=== PATIENT | female | born 1960 | race Caucasian/White ===

== ENCOUNTER 2017-08-05 14:25 | Inpatient (IN) | payer MEDICARE, MEDICAID ==
--- NOTE | 2017-08-05 14:44 | ED Physician Chart ---
ED Chief Complaint/HPI - Patient Information Date Seen:: 08/05/17 Time Seen:: 14:30 Chief Complaint:: Cough History of Present Illness:: onset x 3 days of cough, fever, and congestion; no report of H/As, S/T, neck pain, C/P, SOB, Abd. Pain, A/N/V/D/C, chills, or urinary s/s Allergies:: Allergies Allergy/AdvReac Type Severity Reaction Status Date / Time No Known Allergies Allergy Verified 05/11/17 05:39 Historian:: Patient, EMS Review:: Nurse's Note Reviewed, Old Chart Reviewed, EMS run form Reviewed ED Review of Systems - Review of Systems General/Constitutional: Fever, No chills, No weight loss, Weakness, No diaphoresis, No edema, No loss of appetite Skin: No skin lesions, No rash, No bruising Head: No headache, No light-headedness Eyes: No loss of vision, No pain, No diplopia ENT: No earache, Nasal drainage, No sore throat, No tinnitus Neck: No neck pain, No swelling, No thyromegaly, No stiffness, No mass noted Cardio Vascular: No chest pain, No palpitations, No PND, No orthopnea, No edema Pulmonary: No SOB, Cough, No sputum, No wheezing GI: No nausea, No vomiting, No diarrhea, No pain, No melena, No hematochezia, No constipation, No hematemesis G/U: No dysuria, No frequency, No hematuria Commercial Director: No vaginal discharge, No abnormal vaginal bleed, No contraction Musculoskeletal: No bone or joint pain, No back pain, No muscle pain Endocrine: No polyuria, No polydipsia Psychiatric: Prior psych history, Depression, No anxiety, No suicidal ideation Hematopoietic: No bruising, No lymphadenopathy Allergic/Immuno: No urticaria, No angioedema Neurological: No syncope, No focal symptoms, Weakness, No paresthesia, No headache, Seizure, No dizziness, Confusion, No vertigo ED Past Medical History - Past Medical History Obtainable: Yes Past Medical History: Asthma/COPD, Dyslipidemia, Seizures, Thyroid disorder, Dementia Family History: Diabetes Melitus, HTN Social History: Non Smoker, No Alcohol, No Drug Use, Single, Care Facility Surgical History: None Psychiatricy History: Depression, Dementia Medication: Reviewed Family Medical History - Family Member Mother History Unknown: Yes ED Physical Exam - Physical Examination General/Constitutional: Awake, Well-developed, well-nourished, Alert, No distress, GCS 15, Non-toxic appearing, Ambulatory Head: Atraumatic Eyes: Lids, conjuctiva normal, PERRL, EOMI Skin: Nl inspection, No rash, No skin lesions, No ecchymosis, Well hydrated, No lymphadenopathy ENMT: External ears, nose nl, TM canals nl, Nasal exam nl, Lips, teeth, gums nl , Oropharynx nl, Tonsils nl Neck: Nontender, Full ROM w/o pain, No JVD, No nuchal rigidity, No bruit, No mass, No stridor Respiratory: Nl effort/Exclusion Other Respiratory comments:: Lungs: + Rales and Rhonchi Cardio Vascular: RRR, No murmur, gallop, rubs, NL S1 S2, Carotid/Femoral/Distal pulses equal bilaterally GI: No tenderness/rebounding/guarding, No organomegaly, No hernia, Normal BS's, Nondistended, No mass/bruits, No McBurney tenderness : No CVA tenderness Extremities: No tenderness or effusion, Full ROM, normal strength in all extremities, No edema, Normal digits & nails Neuro/Psych: Alert/oriented, DTR's symmetric, Normal sensory exam, Normal motor strength, Judgement/insight normal, Mood normal, Normal gait, No focal deficits Misc: Normal back, No paraspinal tenderness ED Labs/Radiology/EKG Results - Lab Results Comments:: U/A: + Pyuria - Radiology Results Comments:: CXR: + Bilateral LL Infiltrates - EKG Interpretations EKG Time:: 14:50 Rate & Rhythm: 61; NSR Comments:: non-specific st-t changes ED Septic Shock - . Is Septic Shock (SBP<90, OR Lactate>4 mmol\L) present?: No ED Reassessment (Disposition) - Reassessment Reassessment Condition:: Improved - Diagnosis Diagnosis:: Anemia; UTI; Sepsis - Aftercare/Follow up Instructions Aftercare/Follow-Up Instructions:: Counseled pt regarding lab results/diagnosis & need follow up, Counseled pt & family regarding lab results/diagnosis & need follow up - Patient Disposition Discharge/Transfer:: Acute Care w/in this hosp Accepting Physician:: Dr. De La Cruz Time Called:: 1630 Time Responded:: 16:30 Admitted to:: Med/Surg Spoke to:: Dr. De La Cruz Admitting Medical Physician:: Dr. De La Cruz Condition at Disposition:: Stable, Improved
[2017-08-05 15:53] LABS: % BASOPHILS 0.3 % (0.0-2.0); % EOSINOPHILS 6.9 % (0.0-5.0); % LYMPHOCYTES 19.5 % (20.0-50.0); % NEUTROPHILS 65.3 % (40.0-80.0); EOSINOPHILE ABSOLUTE 0.7 Th/cmm (0.1-0.4); HEMOGLOBIN 11.6 gm/dL (12-16); LYMPHOCYTE ABSOLUTE 2.1 Th/cmm (1.5-3.0); MEAN CELL VOLUME 104.5 fl (81-100); MEAN CORPUSCULAR HEMOGLOBIN 34.3 pg (27.0-31.0); MEAN CORPUSCULAR HGB CONC 32.8 pg (28.0-36.0); MEAN PLATELET VOLUME 9.8 fl; MONOCYTE ABSOLUTE 0.9 Th/cmm (0.3-1.0); RED BLOOD COUNT 3.39 Mil/cmm (3.80-5.10)
[2017-08-05 15:56] LABS: HEMATOCRIT 35.4 % (41.0-60); WHITE BLOOD COUNT 10.7 Th/cmm (4.8-10.8)
[2017-08-05 15:57] LABS: PLATELET COUNT 337 Th/cmm (150-400)
[2017-08-05 16:03] LABS: URINE MICROSCOPIC INDICATED? YES; URINE SOURCE MIDSTREAM
[2017-08-05 16:09] LABS: ALB/GLOB RATIO 1.1 (1.0-1.8); ALBUMIN 3.3 gm/dL (3.7-5.3); ALKALINE PHOSPHATASE 60 U/L (34-104); ANION GAP 13.2 (7.0-16.0); BILIRUBIN,TOTAL 0.3 mg/dL (0.3-1.0); BUN - UREA NITROGEN 19 mg/dL (7-25); CALCIUM SERUM 8.8 mg/dL (8.6-10.3); CARBON DIOXIDE 26.6 mEq/L (21.0-31.0); CHLORIDE 99 mEq/L (98-107); CREATININE - SERUM 0.6 mg/dL (0.6-1.2); CREATININE KINASE 16 U/L (30-223); GFR AFRICAN-AMERICAN > 60.0 ml/min (>90); GFR NON AFRICAN-AMERICAN > 60.0 ml/min; GLUCOSE 80 mg/dL (70-105); POTASSIUM SERUM 4.8 mEq/L (3.5-5.1); SGOT 13 U/L (13-39); SODIUM SERUM 134 mEq/L (136-145); TOTAL PROTEIN,SERUM 6.4 gm/dL (6.0-8.3)
[2017-08-05 16:11] LABS: URINE BILIRUBIN NEGATIVE (NEGATIVE); URINE BLOOD MODERATE (NEGATIVE); URINE GLUCOSE (UA) NEGATIVE (NEGATIVE); URINE KETONE NEGATIVE (NEGATIVE); URINE LEUKOCYTE ESTERASE SMALL (NEGATIVE); URINE NITRATE NEGATIVE (NEGATIVE); URINE PROTEIN NEGATIVE (NEGATIVE); URINE UROBILINOGEN 0.2 E.U./dL (0.2 - 1.0)
[2017-08-05 16:19] LABS: TROP I 0.01 ng/mL (0.01-0.05)
[2017-08-05 16:23] LABS: URINE CLARITY CLOUDY (CLEAR); URINE COLOR YELLOW
[2017-08-05 16:24] LABS: URINE RBC 50-100 /hpf (0-5)
[2017-08-05 16:25] LABS: INR 1.01 (0.5-1.4); PROTHROMBIN TIME (TEST) 10.5 SECONDS (9.5-11.5)
[2017-08-05 16:26] LABS: URINE BACTERIA MODERATE /hpf (NONE SEEN); URINE EPITHELIAL CELLS FEW /lpf (FEW); URINE WBC 25-50 /hpf (0-5)
[2017-08-05 16:31] LABS: SGPT/ALT 7 U/L (7-52)
[2017-08-05] MEDS ORDERED: Magnesium Hydroxide (MOM) 30 mL UDC GT PRN (18:56)
[2017-08-05] MEDS ORDERED: Albuterol/Ipratropium Neb 3 ML AERS HHN PRN (18:56)
[2017-08-05] MEDS ORDERED: Promethazine DM 6.25/15mg-5mL 5 ML SYR GT PRN (18:56)
--- NOTE | 2017-08-05 19:54 | History & Physical ---
ADMIT DATE: 08/05/2017 CHIEF COMPLAINT: Abnormal chest x-ray, congestion. HISTORY OF PRESENT ILLNESS: This is an 56-year-old female with history of mental retardation, cerebral palsy, bedridden, seizure, hypothyroidism, hypercholesterolemia, admitted from a nursing facility secondary to congestion and abnormal chest x-ray, not improved with outpatient therapy. The patient is nonverbal and not interactive. PAST MEDICAL HISTORY: As mentioned in history present illness. PAST SURGICAL HISTORY: Status post G-tube. ALLERGIES: No known drug allergies. MEDICATIONS: The patient is on Tylenol, Depakote, Keppra, alendronate, glycopyrrolate, aspirin, Lipitor, ____, calcium, Colace, Pepcid, Synthroid, and MiraLax. FAMILY HISTORY: Noncontributory. SOCIAL HISTORY: The patient is a [facility] patient requiring 24-hour total care. REVIEW OF SYSTEMS: This is limited secondary to the patient's current mental state. We will try to obtain more detailed review of systems at a later date by talking to family members, sister is Jo-Ann Greenfield at [phone]. I will also try to get information from nursing staff at [facility] at [phone] as well as from Dr. Jensen who normally follows the patient. PHYSICAL EXAMINATION: VITAL SIGNS: Blood pressure 105/73, respirations 18, pulse 96, temperature 98.6. GENERAL: Elderly female, appears chronically ill. NECK: Supple. No mass. LUNGS: Decreased breath sounds, few rhonchi. HEART: Regular rate and rhythm without appreciable murmur. ABDOMEN: Soft and globular. Positive bowel sounds. EXTREMITIES: Positive excoriation, contractures, and atrophy. LABORATORY DATA: WBC 10.7, hemoglobin 11.6, platelets 337. Sodium 134, potassium 4.0, BUN 18, creatinine 0.9, albumin 3.3. UA, 50 WBC, moderate bacteria. ASSESSMENT AND PLAN: Possible pneumonia, urinary tract infection, anemia, mental retardation, cerebral palsy, hyponatremia, moderate protein-calorie malnutrition, seizure, hypothyroidism, hypercholesterolemia, and bedbound. We will continue the patient on oxygen and bronchodilator treatments. Continue IV antibiotic. We will follow the patient's blood culture as well as urine culture. We will provide the patient with bronchodilator treatments, continue with current care with followup consult and recommendations. [facility]# [id number]
[2017-08-05] MEDS ORDERED: POLYETHYLENE GLYCOL 3350 17 GM PACK GT PRN (21:15)
[2017-08-05] MEDS: D5-0.9%NS 1,000 ML IV SCH (22:34)
[2017-08-05] MEDS: Albuterol Nebulizer 2.5mg/3mL HHN SCH (22:41)
[2017-08-05] MEDS: Ipratropium Neb 0.5 mg/2.5 mL UD IH SCH (22:41)
[2017-08-06 00:41] VITALS: BP 109/48
[2017-08-06] MEDS: Levothyroxine 0.125 Mg Tab GT SCH (07:02)
[2017-08-06] MEDS: Docusate Sodium 100 mg/10 mL UD GT SCH ×2 (08:56→16:02)
[2017-08-06] MEDS: Atorvastatin Calcium 10 MG TAB GT SCH (08:56)
[2017-08-06] MEDS: Levetiracetam 500 mg/5mL 5mL UDSyr *for ORAL USE ONLY GT SCH ×2 (08:56→16:02)
[2017-08-06] MEDS: Aspirin 81mg Chewable Tab GT SCH (08:57)
[2017-08-06] MEDS: Ipratropium Neb 0.5 mg/2.5 mL UD IH SCH ×3 (12:05→19:48)
[2017-08-06] MEDS: Albuterol Nebulizer 2.5mg/3mL HHN SCH ×3 (12:05→19:48)
[2017-08-06] MEDS: D5-0.9%NS 1,000 ML IV SCH (12:43)
--- NOTE | 2017-08-06 15:10 | Internal Medicine Prog Note ---
Internal Medicine Subjective - Subjective Service Date: 08/06/17 Patient seen and examined:: with staff Patient is:: awake Per staff patient has:: tolerating meds Internal Medicine Objective - Results Result Diagrams: 08/05/17 15:30 08/05/17 15:30 Recent Labs: Laboratory Last Values WBC 10.7 Th/cmm (4.8-10.8) D 08/05/17 15:30 RBC 3.39 Mil/cmm (3.80-5.10) L 08/05/17 15:30 Hgb 11.6 gm/dL (12-16) L 08/05/17 15:30 Hct 35.4 % (41.0-60) L D 08/05/17 15:30 MCV 104.5 fl (81-100) H 08/05/17 15:30 MCH 34.3 pg (27.0-31.0) H 08/05/17 15:30 MCHC Differential 32.8 pg (28.0-36.0) 08/05/17 15:30 RDW 15.0 % (11.5-20.0) 08/05/17 15:30 Plt Count 337 Th/cmm (150-400) D 08/05/17 15:30 MPV 9.8 fl 08/05/17 15:30 Neutrophils % 65.3 % (40.0-80.0) 08/05/17 15:30 Lymphocytes % 19.5 % (20.0-50.0) L 08/05/17 15:30 Monocytes % 8.0 % (2.0-10.0) 08/05/17 15:30 Eosinophils % 6.9 % (0.0-5.0) H 08/05/17 15:30 Basophils % 0.3 % (0.0-2.0) 08/05/17 15:30 PT 10.5 SECONDS (9.5-11.5) 08/05/17 15:30 INR 1.01 (0.5-1.4) 08/05/17 15:30 PTT (Actin FS) 27.0 SECONDS (26.0-38.0) 08/05/17 15:30 Sodium 134 mEq/L (136-145) L 08/05/17 15:30 Potassium 4.8 mEq/L (3.5-5.1) 08/05/17 15:30 Chloride 99 mEq/L (98-107) 08/05/17 15:30 Carbon Dioxide 26.6 mEq/L (21.0-31.0) 08/05/17 15:30 Anion Gap 13.2 (7.0-16.0) 08/05/17 15:30 BUN 19 mg/dL (7-25) 08/05/17 15:30 Creatinine 0.6 mg/dL (0.6-1.2) 08/05/17 15:30 Est GFR ( Amer) > 60.0 ml/min (>90) 08/05/17 15:30 Est GFR (Non-Af Amer) > 60.0 ml/min 08/05/17 15:30 BUN/Creatinine Ratio 31.7 08/05/17 15:30 Glucose 80 mg/dL (70-105) 08/05/17 15:30 Whole Bld Lactic Acid 1.45 mmol/L (0.60-1.99) 08/05/17 15:30 Calcium 8.8 mg/dL (8.6-10.3) 08/05/17 15:30 Total Bilirubin 0.3 mg/dL (0.3-1.0) 08/05/17 15:30 AST 13 U/L (13-39) 08/05/17 15:30 ALT 7 U/L (7-52) 08/05/17 15:30 Alkaline Phosphatase 60 U/L (34-104) 08/05/17 15:30 Creatine Kinase 16 U/L (30-223) L 08/05/17 15:30 Troponin I 0.01 ng/mL (0.01-0.05) 08/05/17 15:30 Total Protein 6.4 gm/dL (6.0-8.3) 08/05/17 15:30 Albumin 3.3 gm/dL (3.7-5.3) L 08/05/17 15:30 Globulin 3.1 gm/dL 08/05/17 15:30 Albumin/Globulin Ratio 1.1 (1.0-1.8) 08/05/17 15:30 Urine Source MIDSTREAM 08/05/17 15:41 Urine Color YELLOW 08/05/17 15:41 Urine Clarity CLOUDY (CLEAR) H 08/05/17 15:41 Urine pH 8.0 (4.6 - 8.0) 08/05/17 15:41 Ur Specific [place] 1.010 (1.005-1.030) 08/05/17 15:41 Urine Protein NEGATIVE mg/dL (NEGATIVE) 08/05/17 15:41 Urine Glucose (UA) NEGATIVE mg/dL (NEGATIVE) 08/05/17 15:41 Urine Ketones NEGATIVE mg/dL (NEGATIVE) 08/05/17 15:41 Urine Blood MODERATE (NEGATIVE) H 08/05/17 15:41 Urine Nitrate NEGATIVE (NEGATIVE) 08/05/17 15:41 Urine Bilirubin NEGATIVE (NEGATIVE) 08/05/17 15:41 Urine Urobilinogen 0.2 E.U./dL (0.2 - 1.0) 08/05/17 15:41 Ur Leukocyte Esterase SMALL (NEGATIVE) H 08/05/17 15:41 Urine RBC 50-100 /hpf (0-5) H 08/05/17 15:41 Urine WBC 25-50 /hpf (0-5) H 08/05/17 15:41 Ur Epithelial Cells FEW /lpf (FEW) 08/05/17 15:41 Urine Bacteria MODERATE /hpf (NONE SEEN) H 08/05/17 15:41 - Physical Exam Vitals and I&O: Vital Signs Temp 97.8 F 08/06/17 12:00 Pulse 69 08/06/17 12:05 Resp 20 08/06/17 12:05 BP 124/47 08/06/17 12:00 Pulse Ox 98 08/06/17 12:05 Intake & Output 08/05/17 08/06/17 08/06/17 18:59 06:59 18:59 Intake Total 940 360 Balance 940 360 Weight (lbs) 136 lb Intake: Intake, IV Amount 940 360 Cefepime 1 gm In Dextrose 50 5% 50 ml @ 100 mls/hr IV Q12HR [facility] Rx#:[id number] D5-0.9%Ns 1,000 ml @ 80 640 360 mls/hr IV .[id number] [facility] Rx #:[id number] Active Medications: Current Medications Acetaminophen (Tylenol 650mg/20.3ml Suspension) 650 mg GT Q4H PRN PRN Reason: Pain or Fever >101 Stop: 10/04/17 20:55 Albuterol Sulfate (Albuterol 2.5mg/3ml Neb Ud) 2.5 mg HHN QIDRT [facility] Stop: 10/04/17 18:59 Last Admin: 08/06/17 12:05 Dose: 2.5 mg Albuterol/Ipratropium (Duoneb Neb) 3 ml HHN Q6HR PRN PRN Reason: sob Stop: 10/04/17 18:55 Aspirin (Aspirin Chewable) 81 mg GT DAILY [facility] Stop: 10/05/17 08:59 Last Admin: 08/06/17 08:57 Dose: 81 mg Atorvastatin Calcium (Lipitor) 10 mg GT DAILY [facility] PRN Reason: Protocol Stop: 10/05/17 08:59 Last Admin: 08/06/17 08:56 Dose: 10 mg Bisacodyl (Dulcolax 10 Mg Supp) 10 mg RC DAILY PRN PRN Reason: Constipation Stop: 10/04/17 18:55 Budesonide (Pulmicort) 0.5 mg HHN BIDRT [facility] Stop: 10/05/17 06:59 Calcium Carbonate (Tums) 1,250 mg GT BID [facility] Stop: 10/05/17 08:59 Last Admin: 08/06/17 08:56 Dose: 1,250 mg Docusate Sodium (Colace) 100 mg GT BID [facility] Stop: 10/05/17 08:59 Last Admin: 08/06/17 08:56 Dose: 100 mg Famotidine (Pepcid) 20 mg GT DAILY [facility] Stop: 10/05/17 08:59 Last Admin: 08/06/17 08:56 Dose: 20 mg Folic Acid (Folate) 1 mg GT DAILY [facility] Stop: 10/05/17 08:59 Last Admin: 08/06/17 08:57 Dose: 1 mg Cefepime HCl 1 gm/ Dextrose 50 mls @ 100 mls/hr IV Q12HR [facility] Stop: 10/04/17 20:59 Last Admin: 08/06/17 08:37 Dose: 100 mls/hr Dextrose/Sodium Chloride (D5-0.9%Ns) 1,000 mls @ 80 mls/hr IV .[id number] [facility] Stop: 10/04/17 18:59 Last Admin: 08/06/17 12:43 Dose: 80 mls/hr Ipratropium [place] (Atrovent Neb 0.5mg/2.5ml) 0.5 mg IH QIDRT [facility] Stop: 10/04/17 18:59 Last Admin: 08/06/17 12:05 Dose: 0.5 mg Levetiracetam (Keppra) 1,000 mg GT BID [facility] Stop: 10/05/17 08:59 Last Admin: 08/06/17 08:56 Dose: 1,000 mg Levothyroxine Sodium (Synthroid) 0.125 mg GT QDAC [facility] Stop: 10/05/17 07:29 Last Admin: 08/06/17 07:02 Dose: Not Given Lorazepam (Ativan) 1 mg IV Q4H PRN; Protocol PRN Reason: Seizure Stop: 10/04/17 18:57 Magnesium Hydroxide (Milk Of Magnesia) 30 ml GT DAILY PRN PRN Reason: Constipation Stop: 10/04/17 18:55 Ondansetron HCl (Zofran) 4 mg IV Q8H PRN PRN Reason: Nausea / Vomiting Stop: 10/04/17 18:57 Polyethylene Glycol (Miralax) 17 gm GT PRN PRN PRN Reason: Constipation Stop: 10/04/17 21:14 Promethazine HCl/Dextromethorphan (Phenergan Dm 6.25/15mg-5 Ml) 5 ml GT Q4H PRN PRN Reason: Cough Stop: 10/04/17 18:55 Valproate Sodium (Depakene) 500 mg GT BID [facility] PRN Reason: Protocol Stop: 10/05/17 08:59 Last Admin: 08/06/17 08:55 Dose: 500 mg Vitamin D (Vitamin D) 400 iu GT BID [facility] Stop: 10/05/17 08:59 Last Admin: 08/06/17 08:59 Dose: 400 iu General: weak, alert HEENT: NC/AT, PERRLA Neck: Supple Lungs: ronchi Cardiovascular: RRR, Normal S1, Normal S2, without murmur Abdomen: soft, non-tender, non-distended, positive bowel sound Extremities: excoriation Neurological: alert - Procedures Procedures: Procedures Procedure Code Date CHANGE FEEDING DEVICE IN UP INTEST TRACT, SHREDDER OPERATOR APPROACH [id number] 05/11/17 CHANGE GASTROSTOMY TUBE 71305 05/11/17 Internal Medicine Assmt/Plan - Assessment Assessment: possible pna acute uti anemia mr seizure cerebral palsy hyponatremia moderate protein calorie malnutrition hypothyroidism hypercholesteremia - Plan Plan: continue ivabx supplemental oxygen follow up labs in am inhalation treatments seizure precautions continue current plan of care
[2017-08-06] MEDS ORDERED: Probiotic Screen MC PRN (16:30)
[2017-08-06] MEDS: Budesonide 0.5 Mg/2 mL Ud HHN SCH (19:48)
[2017-08-07] MEDS: D5-0.9%NS 1,000 ML IV SCH ×2 (04:12→16:53)
[2017-08-07] MEDS: Levothyroxine 0.125 Mg Tab GT SCH (07:08)
[2017-08-07 07:24] LABS: % BASOPHILS 0.2 % (0.0-2.0); % EOSINOPHILS 6.8 % (0.0-5.0); % LYMPHOCYTES 15.5 % (20.0-50.0); % MONOCYTES 6.6 % (2.0-10.0); % NEUTROPHILS 70.9 % (40.0-80.0); EOSINOPHILE ABSOLUTE 0.6 Th/cmm (0.1-0.4); HEMOGLOBIN 10.1 gm/dL (12-16); LYMPHOCYTE ABSOLUTE 1.5 Th/cmm (1.5-3.0); MEAN CELL VOLUME 104.7 fl (81-100); MEAN CORPUSCULAR HEMOGLOBIN 34.9 pg (27.0-31.0); MEAN CORPUSCULAR HGB CONC 33.3 pg (28.0-36.0); MEAN PLATELET VOLUME 9.7 fl; MONOCYTE ABSOLUTE 0.6 Th/cmm (0.3-1.0); NEUTROPHILE ABSOLUTE 6.7 Th/cmm (1.8-8.0); PLATELET COUNT 337 Th/cmm (150-400); RED CELL DISTRIBUTION WIDTH 15.2 % (11.5-20.0); WHITE BLOOD COUNT 9.4 Th/cmm (4.8-10.8)
[2017-08-07 07:27] LABS: HEMATOCRIT 30.4 % (41.0-60)
[2017-08-07 07:32] LABS: ANION GAP 8.7 (7.0-16.0); BUN - UREA NITROGEN 15 mg/dL (7-25); CALCIUM SERUM 8.4 mg/dL (8.6-10.3); CARBON DIOXIDE 29.8 mEq/L (21.0-31.0); CHLORIDE 102 mEq/L (98-107); CREATININE - SERUM 0.6 mg/dL (0.6-1.2); GFR AFRICAN-AMERICAN > 60.0 ml/min (>90); GFR NON AFRICAN-AMERICAN > 60.0 ml/min; GLUCOSE 111 mg/dL (70-105); MAGNESIUM 1.9 mg/dL (1.9-2.7); POTASSIUM SERUM 4.5 mEq/L (3.5-5.1); SODIUM SERUM 136 mEq/L (136-145)
[2017-08-07] MEDS: Albuterol Nebulizer 2.5mg/3mL HHN SCH ×3 (08:03→19:16)
[2017-08-07] MEDS: Ipratropium Neb 0.5 mg/2.5 mL UD IH SCH ×4 (08:03→19:16)
[2017-08-07] MEDS: Budesonide 0.5 Mg/2 mL Ud HHN SCH ×2 (08:03→19:16)
[2017-08-07] MEDS: Levetiracetam 500 mg/5mL 5mL UDSyr *for ORAL USE ONLY GT SCH ×2 (08:21→16:54)
[2017-08-07] MEDS: Aspirin 81mg Chewable Tab GT SCH (08:22)
[2017-08-07] MEDS: Atorvastatin Calcium 10 MG TAB GT SCH (08:22)
[2017-08-07] MEDS: Docusate Sodium 100 mg/10 mL UD GT SCH ×2 (08:22→16:54)
[2017-08-07] MEDS: Lactobacillus Rhamnosus GG 15 Billion CFU CAP.SPRINK PO SCH (08:22)
--- NOTE | 2017-08-07 08:34 | Diagnostic Imaging Report ---
Portable chest x-ray History: Cough Allowing for portable technique the heart size is normal. No focal pulmonary parenchymal processes. No hilar or mediastinal abnormalities. Impression: No acute abnormalities.
--- NOTE | 2017-08-07 13:03 | Internal Medicine Prog Note ---
Internal Medicine Subjective - Subjective Service Date: 08/07/17 Patient seen and examined:: with staff Patient is:: awake Per staff patient has:: tolerating meds Internal Medicine Objective - Results Result Diagrams: 08/07/17 07:02 08/07/17 07:02 Recent Labs: Laboratory Last Values WBC 9.4 Th/cmm (4.8-10.8) 08/07/17 07:02 RBC 2.90 Mil/cmm (3.80-5.10) L 08/07/17 07:02 Hgb 10.1 gm/dL (12-16) L 08/07/17 07:02 Hct 30.4 % (41.0-60) L D 08/07/17 07:02 MCV 104.7 fl (81-100) H 08/07/17 07:02 MCH 34.9 pg (27.0-31.0) H 08/07/17 07:02 MCHC Differential 33.3 pg (28.0-36.0) 08/07/17 07:02 RDW 15.2 % (11.5-20.0) 08/07/17 07:02 Plt Count 337 Th/cmm (150-400) 08/07/17 07:02 MPV 9.7 fl 08/07/17 07:02 Neutrophils % 70.9 % (40.0-80.0) 08/07/17 07:02 Lymphocytes % 15.5 % (20.0-50.0) L 08/07/17 07:02 Monocytes % 6.6 % (2.0-10.0) 08/07/17 07:02 Eosinophils % 6.8 % (0.0-5.0) H 08/07/17 07:02 Basophils % 0.2 % (0.0-2.0) 08/07/17 07:02 PT 10.5 SECONDS (9.5-11.5) 08/05/17 15:30 INR 1.01 (0.5-1.4) 08/05/17 15:30 PTT (Actin FS) 27.0 SECONDS (26.0-38.0) 08/05/17 15:30 Sodium 136 mEq/L (136-145) 08/07/17 07:02 Potassium 4.5 mEq/L (3.5-5.1) 08/07/17 07:02 Chloride 102 mEq/L (98-107) 08/07/17 07:02 Carbon Dioxide 29.8 mEq/L (21.0-31.0) 08/07/17 07:02 Anion Gap 8.7 (7.0-16.0) 08/07/17 07:02 BUN 15 mg/dL (7-25) 08/07/17 07:02 Creatinine 0.6 mg/dL (0.6-1.2) 08/07/17 07:02 Est GFR ( Amer) > 60.0 ml/min (>90) 08/07/17 07:02 Est GFR (Non-Af Amer) > 60.0 ml/min 08/07/17 07:02 BUN/Creatinine Ratio 25.0 08/07/17 07:02 Glucose 111 mg/dL (70-105) H 08/07/17 07:02 Whole Bld Lactic Acid 1.45 mmol/L (0.60-1.99) 08/05/17 15:30 Calcium 8.4 mg/dL (8.6-10.3) L 08/07/17 07:02 Magnesium 1.9 mg/dL (1.9-2.7) 08/07/17 07:02 Total Bilirubin 0.3 mg/dL (0.3-1.0) 08/05/17 15:30 AST 13 U/L (13-39) 08/05/17 15:30 ALT 7 U/L (7-52) 08/05/17 15:30 Alkaline Phosphatase 60 U/L (34-104) 08/05/17 15:30 Ammonia 44 umol/L (16-53) 08/07/17 07:02 Creatine Kinase 16 U/L (30-223) L 08/05/17 15:30 Troponin I 0.01 ng/mL (0.01-0.05) 08/05/17 15:30 B-Natriuretic Peptide 63.7 pg/mL (5.0-100.0) 08/07/17 07:02 Total Protein 6.4 gm/dL (6.0-8.3) 08/05/17 15:30 Albumin 3.3 gm/dL (3.7-5.3) L 08/05/17 15:30 Globulin 3.1 gm/dL 08/05/17 15:30 Albumin/Globulin Ratio 1.1 (1.0-1.8) 08/05/17 15:30 Urine Source MIDSTREAM 08/05/17 15:41 Urine Color YELLOW 08/05/17 15:41 Urine Clarity CLOUDY (CLEAR) H 08/05/17 15:41 Urine pH 8.0 (4.6 - 8.0) 08/05/17 15:41 Ur Specific [place] 1.010 (1.005-1.030) 08/05/17 15:41 Urine Protein NEGATIVE mg/dL (NEGATIVE) 08/05/17 15:41 Urine Glucose (UA) NEGATIVE mg/dL (NEGATIVE) 08/05/17 15:41 Urine Ketones NEGATIVE mg/dL (NEGATIVE) 08/05/17 15:41 Urine Blood MODERATE (NEGATIVE) H 08/05/17 15:41 Urine Nitrate NEGATIVE (NEGATIVE) 08/05/17 15:41 Urine Bilirubin NEGATIVE (NEGATIVE) 08/05/17 15:41 Urine Urobilinogen 0.2 E.U./dL (0.2 - 1.0) 08/05/17 15:41 Ur Leukocyte Esterase SMALL (NEGATIVE) H 08/05/17 15:41 Urine RBC 50-100 /hpf (0-5) H 08/05/17 15:41 Urine WBC 25-50 /hpf (0-5) H 08/05/17 15:41 Ur Epithelial Cells FEW /lpf (FEW) 08/05/17 15:41 Urine Bacteria MODERATE /hpf (NONE SEEN) H 08/05/17 15:41 - Physical Exam Vitals and I&O: Vital Signs Temp 97.1 F 08/07/17 08:00 Pulse 83 08/07/17 11:41 Resp 20 08/07/17 11:41 BP 107/66 08/07/17 08:00 Pulse Ox 98 08/07/17 11:41 Intake & Output 08/06/17 08/07/17 08/07/17 18:59 06:59 18:59 Intake Total 410 1050 Balance 410 1050 Intake: Intake, IV Amount 410 1050 Cefepime 1 gm In Dextrose 50 50 5% 50 ml @ 100 mls/hr IV Q12HR [facility] Rx#:[id number] D5-0.9%Ns 1,000 ml @ 80 360 1000 mls/hr IV .[id number] [facility] Rx #:[id number] Active Medications: Current Medications Acetaminophen (Tylenol 650mg/20.3ml Suspension) 650 mg GT Q4H PRN PRN Reason: Pain or Fever >101 Stop: 10/04/17 20:55 Albuterol Sulfate (Albuterol 2.5mg/3ml Neb Ud) 2.5 mg HHN QIDRT [facility] Stop: 10/04/17 18:59 Last Admin: 08/07/17 11:37 Dose: 2.5 mg Albuterol/Ipratropium (Duoneb Neb) 3 ml HHN Q6HR PRN PRN Reason: sob Stop: 10/04/17 18:55 Aspirin (Aspirin Chewable) 81 mg GT DAILY [facility] Stop: 10/05/17 08:59 Last Admin: 08/07/17 08:22 Dose: 81 mg Atorvastatin Calcium (Lipitor) 10 mg GT DAILY [facility] PRN Reason: Protocol Stop: 10/05/17 08:59 Last Admin: 08/07/17 08:22 Dose: 10 mg Bisacodyl (Dulcolax 10 Mg Supp) 10 mg RC DAILY PRN PRN Reason: Constipation Stop: 10/04/17 18:55 Budesonide (Pulmicort) 0.5 mg HHN BIDRT [facility] Stop: 10/05/17 06:59 Last Admin: 08/07/17 08:03 Dose: 0.5 mg Calcium Carbonate (Tums) 1,250 mg GT BID [facility] Stop: 10/05/17 08:59 Last Admin: 08/07/17 08:22 Dose: 1,250 mg Docusate Sodium (Colace) 100 mg GT BID [facility] Stop: 10/05/17 08:59 Last Admin: 08/07/17 08:22 Dose: 100 mg Famotidine (Pepcid) 20 mg GT DAILY [facility] Stop: 10/05/17 08:59 Last Admin: 08/07/17 08:22 Dose: 20 mg Folic Acid (Folate) 1 mg GT DAILY [facility] Stop: 10/05/17 08:59 Last Admin: 08/07/17 08:22 Dose: 1 mg Cefepime HCl 1 gm/ Dextrose 50 mls @ 100 mls/hr IV Q12HR [facility] Stop: 10/04/17 20:59 Last Admin: 08/07/17 08:21 Dose: 100 mls/hr Dextrose/Sodium Chloride (D5-0.9%Ns) 1,000 mls @ 80 mls/hr IV .[id number] [facility] Stop: 10/04/17 18:59 Last Admin: 08/07/17 04:12 Dose: 80 mls/hr Ipratropium [place] (Atrovent Neb 0.5mg/2.5ml) 0.5 mg IH QIDRT [facility] Stop: 10/04/17 18:59 Last Admin: 08/07/17 11:37 Dose: 0.5 mg Lactobacillus Rhamnosus (Culturelle 15b) 1 each PO DAILY [facility] Stop: 10/06/17 08:59 Last Admin: 08/07/17 08:22 Dose: 1 each Levetiracetam (Keppra) 1,000 mg GT BID [facility] Stop: 10/05/17 08:59 Last Admin: 08/07/17 08:21 Dose: 1,000 mg Levothyroxine Sodium (Synthroid) 0.125 mg GT QDAC [facility] Stop: 10/05/17 07:29 Last Admin: 08/07/17 07:08 Dose: Not Given Lorazepam (Ativan) 1 mg IV Q4H PRN; Protocol PRN Reason: Seizure Stop: 10/04/17 18:57 Magnesium Hydroxide (Milk Of Magnesia) 30 ml GT DAILY PRN PRN Reason: Constipation Stop: 10/04/17 18:55 Miscellaneous (Probiotic Screen) 1 ea MC PRN PRN PRN Reason: PROTOCOL Stop: 10/05/17 16:29 Ondansetron HCl (Zofran) 4 mg IV Q8H PRN PRN Reason: Nausea / Vomiting Stop: 10/04/17 18:57 Polyethylene Glycol (Miralax) 17 gm GT PRN PRN PRN Reason: Constipation Stop: 10/04/17 21:14 Promethazine HCl/Dextromethorphan (Phenergan Dm 6.25/15mg-5 Ml) 5 ml GT Q4H PRN PRN Reason: Cough Stop: 10/04/17 18:55 Valproate Sodium (Depakene) 500 mg GT BID [facility] PRN Reason: Protocol Stop: 10/05/17 08:59 Last Admin: 08/07/17 08:21 Dose: 500 mg Vitamin D (Vitamin D) 400 iu GT BID [facility] Stop: 10/05/17 08:59 Last Admin: 08/07/17 08:22 Dose: 400 iu General: weak, alert HEENT: NC/AT, PERRLA Neck: Supple Lungs: ronchi Cardiovascular: RRR, Normal S1, Normal S2, without murmur Abdomen: soft, non-tender, non-distended, positive bowel sound Extremities: excoriation Neurological: alert - Procedures Procedures: Procedures Procedure Code Date CHANGE FEEDING DEVICE IN UP INTEST TRACT, ECOLOGICAL ECONOMIST APPROACH [id number] 05/11/17 CHANGE GASTROSTOMY TUBE 81678 05/11/17 Internal Medicine Assmt/Plan - Assessment Assessment: possible pna acute uti anemia mr seizure cerebral palsy hyponatremia moderate protein calorie malnutrition hypothyroidism hypercholesteremia - Plan Plan: continue ivabx supplemental oxygen follow up labs in am inhalation treatments seizure precautions continue current plan of care Nutritional Asmnt/Malnutr-PDOC - Dietary Evaluation Malnutrition Findings (Please click <Entered> for more info): Nutritional Asmnt/Malnutrition Start: 08/06/17 15: 32 Text: Status: Complete Freq: Document 08/06/17 15:32 LCHENG (Rec: 08/06/17 15:40 LCHENG [id number]) Nutritional Asmnt/Malnutrition Patient General Information Nutritional Screening High Risk Consult Diagnosis PNA, UTI, Sepsis Pertinent Medical Hx/Surgical Hx Asthma/COPD, dyslipidemia, seizure, thyroid, dementia, depression Subjective Information Consult received for saritha Denis . Pt seen resting in bed at time of visit. Verified TF running at 55ml/hr at time of visit. Spoke with RN, pt was tolerating TF well so far. Current Diet Order/ Nutrition Support Isosource 1.5, 55ml/hr x 24hr, providing 1980kcal and 89g protein Pertinent Medications tums, D5-0.9ns, colace, folate , synthroid, vitamin D Pertinent Labs 08/05 na 134, K 4.8, Cl 99, BUN 19, Cr 0.6, Glucose 80, Ca 8. 8, ALb 3.3 Nutritional Hx/Data Height 5 ft Height (Calculated Centimeters) 152.4 Current Weight (lbs) 136 lb Weight (Calculated Kilograms) 61.7 Weight (Calculated Grams) 14901.6 [place] Body Weight 100 % [place] Body Weight 136 Body Mass Index (BMI) 26.5 Weight Status Overweight GI Symptoms GI Symptoms None Last BM no record Difficult in: None Skin Integrity/Comment: intact Estimated Nutritional Goals BEE in Kcals: Using Current wt Calories/Kcals/Kg 25-30 considering sepsis and bedbound Kcals Calculated 0283-4513 Protein: Using Current wt Protein g/k.1-1.3 Protein Calculated 68-80 Fluid: ml 1550-1860ml (1ml/kcal) Nutritional Problem 1. Problem Problem excessive intake from enertal feeding Etiology current TF regimen providding excessive energy Signs/Symptoms: TF meeting about 106% of higher end of calorie needs and 111% of higher end of protein needs. Malnutrition Alert Protein-Calorie Malnutrition N/A Is there a minimum of two criteria No selected? Query Text:Check all the applicable criteria. A minimum of two criteria are recommended for diagnosis of either severe or non-severe malnutrition. Intervention/Recommendation Comments 1. Recommend Isosource 1.5 55ml/hr x 20hr. This will provide 1650kcal, 74g protein and 886ml free water, meeting 100% of nutritional needs. GENIA tolentino notified. 2. Monitor TF rate, tolerance, wt weekly, skin integrity and labs 3. F/U as moderate risk in 3-5 days, 2/3-2/5 Expected Outcomes/Goals Expected Outcomes/Goals 1. Pt to meet 100% of nutritional needs via nutrition support with tolerance 2. Wt stability, skin to remain intact, labs to approach WNL.
[2017-08-08 06:58] LABS: % BASOPHILS 0.1 % (0.0-2.0); % EOSINOPHILS 7.6 % (0.0-5.0); % LYMPHOCYTES 19.4 % (20.0-50.0); % MONOCYTES 12.5 % (2.0-10.0); % NEUTROPHILS 60.4 % (40.0-80.0); EOSINOPHILE ABSOLUTE 0.4 Th/cmm (0.1-0.4); HEMATOCRIT 31.2 % (41.0-60); HEMOGLOBIN 10.3 gm/dL (12-16); LYMPHOCYTE ABSOLUTE 1.1 Th/cmm (1.5-3.0); MEAN CELL VOLUME 103.6 fl (81-100); MEAN CORPUSCULAR HEMOGLOBIN 34.2 pg (27.0-31.0); MEAN PLATELET VOLUME 9.7 fl; MONOCYTE ABSOLUTE 0.7 Th/cmm (0.3-1.0); NEUTROPHILE ABSOLUTE 3.7 Th/cmm (1.8-8.0); PLATELET COUNT 357 Th/cmm (150-400); RED BLOOD COUNT 3.01 Mil/cmm (3.80-5.10)
[2017-08-08] MEDS: Levothyroxine 0.125 Mg Tab GT SCH (07:02)
[2017-08-08 07:04] LABS: WHITE BLOOD COUNT 5.9 Th/cmm (4.8-10.8)
[2017-08-08 07:26] LABS: ANION GAP 7.9 (7.0-16.0); BUN - UREA NITROGEN 14 mg/dL (7-25); CALCIUM SERUM 8.3 mg/dL (8.6-10.3); CARBON DIOXIDE 32.3 mEq/L (21.0-31.0); CHLORIDE 100 mEq/L (98-107); CREATININE - SERUM 0.9 mg/dL (0.6-1.2); GFR AFRICAN-AMERICAN > 60.0 ml/min (>90); GFR NON AFRICAN-AMERICAN > 60.0 ml/min; GLUCOSE 108 mg/dL (70-105); POTASSIUM SERUM 4.2 mEq/L (3.5-5.1); SODIUM SERUM 136 mEq/L (136-145)
[2017-08-08] MEDS: Ipratropium Neb 0.5 mg/2.5 mL UD IH SCH ×4 (07:29→19:11)
[2017-08-08] MEDS: Budesonide 0.5 Mg/2 mL Ud HHN SCH ×2 (07:29→19:11)
[2017-08-08] MEDS: Albuterol Nebulizer 2.5mg/3mL HHN SCH ×4 (07:29→19:11)
[2017-08-08] MEDS: Atorvastatin Calcium 10 MG TAB GT SCH (08:43)
[2017-08-08] MEDS: Aspirin 81mg Chewable Tab GT SCH (08:43)
[2017-08-08] MEDS: Docusate Sodium 100 mg/10 mL UD GT SCH ×2 (08:44→17:39)
[2017-08-08] MEDS: Lactobacillus Rhamnosus GG 15 Billion CFU CAP.SPRINK PO SCH (08:45)
[2017-08-08] MEDS: Levetiracetam 500 mg/5mL 5mL UDSyr *for ORAL USE ONLY GT SCH ×2 (08:45→17:39)
[2017-08-08] MEDS: D5-0.9%NS 1,000 ML IV SCH (10:01)
--- NOTE | 2017-08-08 14:34 | Internal Medicine Prog Note ---
Internal Medicine Subjective - Subjective Service Date: 08/08/17 Patient seen and examined:: with staff Patient is:: awake Per staff patient has:: tolerating meds Internal Medicine Objective - Results Result Diagrams: 08/08/17 06:22 08/08/17 06:22 Recent Labs: Laboratory Last Values WBC 5.9 Th/cmm (4.8-10.8) D 08/08/17 06:22 RBC 3.01 Mil/cmm (3.80-5.10) L 08/08/17 06:22 Hgb 10.3 gm/dL (12-16) L 08/08/17 06:22 Hct 31.2 % (41.0-60) L 08/08/17 06:22 MCV 103.6 fl (81-100) H 08/08/17 06:22 MCH 34.2 pg (27.0-31.0) H 08/08/17 06:22 MCHC Differential 33.0 pg (28.0-36.0) 08/08/17 06:22 RDW 15.0 % (11.5-20.0) 08/08/17 06:22 Plt Count 357 Th/cmm (150-400) 08/08/17 06:22 MPV 9.7 fl 08/08/17 06:22 Neutrophils % 60.4 % (40.0-80.0) 08/08/17 06:22 Lymphocytes % 19.4 % (20.0-50.0) L 08/08/17 06:22 Monocytes % 12.5 % (2.0-10.0) H 08/08/17 06:22 Eosinophils % 7.6 % (0.0-5.0) H 08/08/17 06:22 Basophils % 0.1 % (0.0-2.0) 08/08/17 06:22 PT 10.5 SECONDS (9.5-11.5) 08/05/17 15:30 INR 1.01 (0.5-1.4) 08/05/17 15:30 PTT (Actin FS) 27.0 SECONDS (26.0-38.0) 08/05/17 15:30 Sodium 136 mEq/L (136-145) 08/08/17 06:22 Potassium 4.2 mEq/L (3.5-5.1) 08/08/17 06:22 Chloride 100 mEq/L (98-107) 08/08/17 06:22 Carbon Dioxide 32.3 mEq/L (21.0-31.0) H 08/08/17 06:22 Anion Gap 7.9 (7.0-16.0) 08/08/17 06:22 BUN 14 mg/dL (7-25) 08/08/17 06:22 Creatinine 0.9 mg/dL (0.6-1.2) 08/08/17 06:22 Est GFR ( Amer) > 60.0 ml/min (>90) 08/08/17 06:22 Est GFR (Non-Af Amer) > 60.0 ml/min 08/08/17 06:22 BUN/Creatinine Ratio 15.6 08/08/17 06:22 Glucose 108 mg/dL (70-105) H 08/08/17 06:22 Whole Bld Lactic Acid 1.45 mmol/L (0.60-1.99) 08/05/17 15:30 Calcium 8.3 mg/dL (8.6-10.3) L 08/08/17 06:22 Magnesium 1.9 mg/dL (1.9-2.7) 08/07/17 07:02 Total Bilirubin 0.3 mg/dL (0.3-1.0) 08/05/17 15:30 AST 13 U/L (13-39) 08/05/17 15:30 ALT 7 U/L (7-52) 08/05/17 15:30 Alkaline Phosphatase 60 U/L (34-104) 08/05/17 15:30 Ammonia 44 umol/L (16-53) 08/07/17 07:02 Creatine Kinase 16 U/L (30-223) L 08/05/17 15:30 Troponin I 0.01 ng/mL (0.01-0.05) 08/05/17 15:30 B-Natriuretic Peptide 63.7 pg/mL (5.0-100.0) 08/07/17 07:02 Total Protein 6.4 gm/dL (6.0-8.3) 08/05/17 15:30 Albumin 3.3 gm/dL (3.7-5.3) L 08/05/17 15:30 Globulin 3.1 gm/dL 08/05/17 15:30 Albumin/Globulin Ratio 1.1 (1.0-1.8) 08/05/17 15:30 Urine Source MIDSTREAM 08/05/17 15:41 Urine Color YELLOW 08/05/17 15:41 Urine Clarity CLOUDY (CLEAR) H 08/05/17 15:41 Urine pH 8.0 (4.6 - 8.0) 08/05/17 15:41 Ur Specific [place] 1.010 (1.005-1.030) 08/05/17 15:41 Urine Protein NEGATIVE mg/dL (NEGATIVE) 08/05/17 15:41 Urine Glucose (UA) NEGATIVE mg/dL (NEGATIVE) 08/05/17 15:41 Urine Ketones NEGATIVE mg/dL (NEGATIVE) 08/05/17 15:41 Urine Blood MODERATE (NEGATIVE) H 08/05/17 15:41 Urine Nitrate NEGATIVE (NEGATIVE) 08/05/17 15:41 Urine Bilirubin NEGATIVE (NEGATIVE) 08/05/17 15:41 Urine Urobilinogen 0.2 E.U./dL (0.2 - 1.0) 08/05/17 15:41 Ur Leukocyte Esterase SMALL (NEGATIVE) H 08/05/17 15:41 Urine RBC 50-100 /hpf (0-5) H 08/05/17 15:41 Urine WBC 25-50 /hpf (0-5) H 08/05/17 15:41 Ur Epithelial Cells FEW /lpf (FEW) 08/05/17 15:41 Urine Bacteria MODERATE /hpf (NONE SEEN) H 08/05/17 15:41 - Physical Exam Vitals and I&O: Vital Signs Temp 98.1 F 08/08/17 04:00 Pulse 77 08/08/17 11:08 Resp 20 08/08/17 11:08 BP 108/55 08/08/17 04:00 Pulse Ox 99 08/08/17 11:08 Intake & Output 08/07/17 08/08/17 08/08/17 18:59 06:59 18:59 Intake Total 935.333 50 Balance 935.333 50 Weight (lbs) 136 lb 140 lb Intake: Intake, IV Amount 1164.667 935.333 50 Cefepime 1 gm In Dextrose 50 50 50 5% 50 ml @ 100 mls/hr IV Q12HR [facility] Rx#:[id number] D5-0.9%Ns 1,000 ml @ 80 1114.667 885.333 mls/hr IV .[id number] [facility] Rx #:[id number] Tube Feeding 840 Other: # Voids 3 3 # Bowel Movements 0 1 Active Medications: Current Medications Acetaminophen (Tylenol 650mg/20.3ml Suspension) 650 mg GT Q4H PRN PRN Reason: Pain or Fever >101 Stop: 10/04/17 20:55 Albuterol Sulfate (Albuterol 2.5mg/3ml Neb Ud) 2.5 mg HHN QIDRT [facility] Stop: 10/04/17 18:59 Last Admin: 08/08/17 11:07 Dose: 2.5 mg Albuterol/Ipratropium (Duoneb Neb) 3 ml HHN Q6HR PRN PRN Reason: sob Stop: 10/04/17 18:55 Aspirin (Aspirin Chewable) 81 mg GT DAILY [facility] Stop: 10/05/17 08:59 Last Admin: 08/08/17 08:43 Dose: 81 mg Atorvastatin Calcium (Lipitor) 10 mg GT DAILY [facility] PRN Reason: Protocol Stop: 10/05/17 08:59 Last Admin: 08/08/17 08:43 Dose: 10 mg Bisacodyl (Dulcolax 10 Mg Supp) 10 mg RC DAILY PRN PRN Reason: Constipation Stop: 10/04/17 18:55 Budesonide (Pulmicort) 0.5 mg HHN BIDRT [facility] Stop: 10/05/17 06:59 Last Admin: 08/08/17 07:29 Dose: 0.5 mg Calcium Carbonate (Tums) 1,250 mg GT BID [facility] Stop: 10/05/17 08:59 Last Admin: 08/08/17 08:43 Dose: 1,250 mg Docusate Sodium (Colace) 100 mg GT BID [facility] Stop: 10/05/17 08:59 Last Admin: 08/08/17 08:44 Dose: 100 mg Famotidine (Pepcid) 20 mg GT DAILY [facility] Stop: 10/05/17 08:59 Last Admin: 08/08/17 08:44 Dose: 20 mg Folic Acid (Folate) 1 mg GT DAILY [facility] Stop: 10/05/17 08:59 Last Admin: 08/08/17 08:44 Dose: 1 mg Cefepime HCl 1 gm/ Dextrose 50 mls @ 100 mls/hr IV Q12HR [facility] Stop: 10/04/17 20:59 Last Infusion: 08/08/17 11:40 Dose: Infused Dextrose/Sodium Chloride (D5-0.9%Ns) 1,000 mls @ 80 mls/hr IV .[id number] [facility] Stop: 10/04/17 18:59 Last Admin: 08/08/17 10:01 Dose: 80 mls/hr Fluconazole (Diflucan) 200 mg in 100 mls @ 100 mls/hr IV Q24HR [facility] Stop: 10/07/17 14:59 Ipratropium [place] (Atrovent Neb 0.5mg/2.5ml) 0.5 mg IH QIDRT [facility] Stop: 10/04/17 18:59 Last Admin: 08/08/17 11:07 Dose: 0.5 mg Lactobacillus Rhamnosus (Culturelle 15b) 1 each PO DAILY [facility] Stop: 10/06/17 08:59 Last Admin: 08/08/17 08:45 Dose: 1 each Levetiracetam (Keppra) 1,000 mg GT BID [facility] Stop: 10/05/17 08:59 Last Admin: 08/08/17 08:45 Dose: 1,000 mg Levothyroxine Sodium 0.1 mg/ (Levothyroxine Sodium 0.025 mg) 0.125 mg GT QDAC [facility] Stop: 10/07/17 10:59 Last Admin: 08/08/17 12:01 Dose: 0.125 mg Lorazepam (Ativan) 1 mg IV Q4H PRN; Protocol PRN Reason: Seizure Stop: 10/04/17 18:57 Magnesium Hydroxide (Milk Of Magnesia) 30 ml GT DAILY PRN PRN Reason: Constipation Stop: 10/04/17 18:55 Miscellaneous (Probiotic Screen) 1 ea MC PRN PRN PRN Reason: PROTOCOL Stop: 10/05/17 16:29 Ondansetron HCl (Zofran) 4 mg IV Q8H PRN PRN Reason: Nausea / Vomiting Stop: 10/04/17 18:57 Polyethylene Glycol (Miralax) 17 gm GT PRN PRN PRN Reason: Constipation Stop: 10/04/17 21:14 Promethazine HCl/Dextromethorphan (Phenergan Dm 6.25/15mg-5 Ml) 5 ml GT Q4H PRN PRN Reason: Cough Stop: 10/04/17 18:55 Valproate Sodium (Depakene) 500 mg GT BID [facility] PRN Reason: Protocol Stop: 10/05/17 08:59 Last Admin: 08/08/17 08:45 Dose: 500 mg Vitamin D (Vitamin D) 400 iu GT BID [facility] Stop: 10/05/17 08:59 Last Admin: 08/08/17 08:45 Dose: 400 iu General: weak, alert HEENT: NC/AT, PERRLA Neck: Supple Lungs: ronchi Cardiovascular: RRR, Normal S1, Normal S2, without murmur Abdomen: soft, non-tender, non-distended, positive bowel sound Extremities: excoriation Neurological: alert - Procedures Procedures: Procedures Procedure Code Date CHANGE FEEDING DEVICE IN UP INTEST TRACT, 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 [id number] 05/11/17 CHANGE GASTROSTOMY TUBE 30713 05/11/17 Internal Medicine Assmt/Plan - Assessment Assessment: possible pna acute uti anemia mr seizure cerebral palsy hyponatremia moderate protein calorie malnutrition hypothyroidism hypercholesteremia - Plan Plan: continue ivabx supplemental oxygen follow up labs in am inhalation treatments seizure precautions continue current plan of care Nutritional Asmnt/Malnutr-PDOC - Dietary Evaluation Malnutrition Findings (Please click <Entered> for more info): Nutritional Asmnt/Malnutrition Start: 08/06/17 15: 32 Text: Status: Complete Freq: Document 08/06/17 15:32 [email or web address] (Rec: 08/06/17 15:40 LCHENG [email or web address]) Nutritional Asmnt/Malnutrition Patient General Information Nutritional Screening High Risk Consult Diagnosis PNA, UTI, Sepsis Pertinent Medical Hx/Surgical Hx Asthma/COPD, dyslipidemia, seizure, thyroid, dementia, depression Subjective Information Consult received for saritha Denis . Pt seen resting in bed at time of visit. Verified TF running at 55ml/hr at time of visit. Spoke with RN, pt was tolerating TF well so far. Current Diet Order/ Nutrition Support Isosource 1.5, 55ml/hr x 24hr, providing 1980kcal and 89g protein Pertinent Medications tums, D5-0.9ns, colace, folate , synthroid, vitamin D Pertinent Labs 08/05 na 134, K 4.8, Cl 99, BUN 19, Cr 0.6, Glucose 80, Ca 8. 8, ALb 3.3 Nutritional Hx/Data Height 5 ft Height (Calculated Centimeters) 152.4 Current Weight (lbs) 136 lb Weight (Calculated Kilograms) 61.7 Weight (Calculated Grams) 72868.6 [place] Body Weight 100 % [place] Body Weight 136 Body Mass Index (BMI) 26.5 Weight Status Overweight GI Symptoms GI Symptoms None Last BM no record Difficult in: None Skin Integrity/Comment: intact Estimated Nutritional Goals BEE in Kcals: Using Current wt Calories/Kcals/Kg 25-30 considering sepsis and bedbound Kcals Calculated 1046-3284 Protein: Using Current wt Protein g/k.1-1.3 Protein Calculated 68-80 Fluid: ml 1550-1860ml (1ml/kcal) Nutritional Problem 1. Problem Problem excessive intake from enertal feeding Etiology current TF regimen providding excessive energy Signs/Symptoms: TF meeting about 106% of higher end of calorie needs and 111% of higher end of protein needs. Malnutrition Alert Protein-Calorie Malnutrition N/A Is there a minimum of two criteria No selected? Query Text:Check all the applicable criteria. A minimum of two criteria are recommended for diagnosis of either severe or non-severe malnutrition. Intervention/Recommendation Comments 1. Recommend Isosource 1.5 55ml/hr x 20hr. This will provide 1650kcal, 74g protein and 886ml free water, meeting 100% of nutritional needs. GENIA tolentino notified. 2. Monitor TF rate, tolerance, wt weekly, skin integrity and labs 3. F/U as moderate risk in 3-5 days, 2/3-2/5 Expected Outcomes/Goals Expected Outcomes/Goals 1. Pt to meet 100% of nutritional needs via nutrition support with tolerance 2. Wt stability, skin to remain intact, labs to approach WNL.
[2017-08-08] MEDS ORDERED: Fluconazole 200mg/100mL 200 MG/100 ML BAG IV SCH (15:00)
[2017-08-09] MEDS: Ipratropium Neb 0.5 mg/2.5 mL UD IH SCH ×4 (07:21→19:06)
[2017-08-09] MEDS: Budesonide 0.5 Mg/2 mL Ud HHN SCH ×2 (07:21→19:06)
[2017-08-09] MEDS: Albuterol Nebulizer 2.5mg/3mL HHN SCH ×4 (07:22→19:06)
[2017-08-09 08:50] LABS: % BASOPHILS 1.3 % (0.0-2.0); % EOSINOPHILS 6.4 % (0.0-5.0); % LYMPHOCYTES 22.9 % (20.0-50.0); % MONOCYTES 14.3 % (2.0-10.0); % NEUTROPHILS 55.1 % (40.0-80.0); BASOPHILE ABSOLUTE 0.1 Th/cumm (0-0.2); EOSINOPHILE ABSOLUTE 0.4 Th/cmm (0.1-0.4); HEMATOCRIT 33.5 % (41.0-60); HEMOGLOBIN 11.1 gm/dL (12-16); LYMPHOCYTE ABSOLUTE 1.5 Th/cmm (1.5-3.0); MEAN CELL VOLUME 104.3 fl (81-100); MEAN CORPUSCULAR HEMOGLOBIN 34.6 pg (27.0-31.0); MEAN CORPUSCULAR HGB CONC 33.2 pg (28.0-36.0); MEAN PLATELET VOLUME 9.5 fl; MONOCYTE ABSOLUTE 0.9 Th/cmm (0.3-1.0); NEUTROPHILE ABSOLUTE 3.6 Th/cmm (1.8-8.0); PLATELET COUNT 350 Th/cmm (150-400); RED BLOOD COUNT 3.22 Mil/cmm (3.80-5.10); RED CELL DISTRIBUTION WIDTH 14.9 % (11.5-20.0); WHITE BLOOD COUNT 6.5 Th/cmm (4.8-10.8)
[2017-08-09 09:05] LABS: ANION GAP 7.7 (7.0-16.0); BUN - UREA NITROGEN 15 mg/dL (7-25); CALCIUM SERUM 8.8 mg/dL (8.6-10.3); CARBON DIOXIDE 33.9 mEq/L (21.0-31.0); CHLORIDE 99 mEq/L (98-107); CREATININE - SERUM 0.6 mg/dL (0.6-1.2); GFR AFRICAN-AMERICAN > 60.0 ml/min (>90); GFR NON AFRICAN-AMERICAN > 60.0 ml/min; GLUCOSE 104 mg/dL (70-105); POTASSIUM SERUM 4.6 mEq/L (3.5-5.1); SODIUM SERUM 136 mEq/L (136-145)
[2017-08-09] MEDS: Aspirin 81mg Chewable Tab GT SCH (09:42)
[2017-08-09] MEDS: Atorvastatin Calcium 10 MG TAB GT SCH (09:42)
[2017-08-09] MEDS: Docusate Sodium 100 mg/10 mL UD GT SCH ×2 (09:44→17:12)
[2017-08-09] MEDS: Levetiracetam 500 mg/5mL 5mL UDSyr *for ORAL USE ONLY GT SCH ×2 (09:47→17:14)
[2017-08-09] MEDS: Lactobacillus Rhamnosus GG 15 Billion CFU CAP.SPRINK PO SCH (09:47)
--- NOTE | 2017-08-09 16:45 | Internal Medicine Prog Note ---
Internal Medicine Subjective - Subjective Service Date: 08/09/17 Patient seen and examined:: with staff Patient is:: awake Per staff patient has:: tolerating meds Internal Medicine Objective - Results Result Diagrams: 08/09/17 08:00 08/09/17 08:00 Recent Labs: Laboratory Last Values WBC 6.5 Th/cmm (4.8-10.8) 08/09/17 08:00 RBC 3.22 Mil/cmm (3.80-5.10) L 08/09/17 08:00 Hgb 11.1 gm/dL (12-16) L 08/09/17 08:00 Hct 33.5 % (41.0-60) L 08/09/17 08:00 MCV 104.3 fl (81-100) H 08/09/17 08:00 MCH 34.6 pg (27.0-31.0) H 08/09/17 08:00 MCHC Differential 33.2 pg (28.0-36.0) 08/09/17 08:00 RDW 14.9 % (11.5-20.0) 08/09/17 08:00 Plt Count 350 Th/cmm (150-400) 08/09/17 08:00 MPV 9.5 fl 08/09/17 08:00 Neutrophils % 55.1 % (40.0-80.0) 08/09/17 08:00 Lymphocytes % 22.9 % (20.0-50.0) 08/09/17 08:00 Monocytes % 14.3 % (2.0-10.0) H 08/09/17 08:00 Eosinophils % 6.4 % (0.0-5.0) H 08/09/17 08:00 Basophils % 1.3 % (0.0-2.0) 08/09/17 08:00 PT 10.5 SECONDS (9.5-11.5) 08/05/17 15:30 INR 1.01 (0.5-1.4) 08/05/17 15:30 PTT (Actin FS) 27.0 SECONDS (26.0-38.0) 08/05/17 15:30 Sodium 136 mEq/L (136-145) 08/09/17 08:00 Potassium 4.6 mEq/L (3.5-5.1) 08/09/17 08:00 Chloride 99 mEq/L (98-107) 08/09/17 08:00 Carbon Dioxide 33.9 mEq/L (21.0-31.0) H 08/09/17 08:00 Anion Gap 7.7 (7.0-16.0) 08/09/17 08:00 BUN 15 mg/dL (7-25) 08/09/17 08:00 Creatinine 0.6 mg/dL (0.6-1.2) 08/09/17 08:00 Est GFR ( Amer) > 60.0 ml/min (>90) 08/09/17 08:00 Est GFR (Non-Af Amer) > 60.0 ml/min 08/09/17 08:00 BUN/Creatinine Ratio 25.0 08/09/17 08:00 Glucose 104 mg/dL (70-105) 08/09/17 08:00 Whole Bld Lactic Acid 1.45 mmol/L (0.60-1.99) 08/05/17 15:30 Calcium 8.8 mg/dL (8.6-10.3) 08/09/17 08:00 Magnesium 1.9 mg/dL (1.9-2.7) 08/07/17 07:02 Total Bilirubin 0.3 mg/dL (0.3-1.0) 08/05/17 15:30 AST 13 U/L (13-39) 08/05/17 15:30 ALT 7 U/L (7-52) 08/05/17 15:30 Alkaline Phosphatase 60 U/L (34-104) 08/05/17 15:30 Ammonia 44 umol/L (16-53) 08/07/17 07:02 Creatine Kinase 16 U/L (30-223) L 08/05/17 15:30 Troponin I 0.01 ng/mL (0.01-0.05) 08/05/17 15:30 B-Natriuretic Peptide 63.7 pg/mL (5.0-100.0) 08/07/17 07:02 Total Protein 6.4 gm/dL (6.0-8.3) 08/05/17 15:30 Albumin 3.3 gm/dL (3.7-5.3) L 08/05/17 15:30 Globulin 3.1 gm/dL 08/05/17 15:30 Albumin/Globulin Ratio 1.1 (1.0-1.8) 08/05/17 15:30 Urine Source MIDSTREAM 08/05/17 15:41 Urine Color YELLOW 08/05/17 15:41 Urine Clarity CLOUDY (CLEAR) H 08/05/17 15:41 Urine pH 8.0 (4.6 - 8.0) 08/05/17 15:41 Ur Specific [place] 1.010 (1.005-1.030) 08/05/17 15:41 Urine Protein NEGATIVE mg/dL (NEGATIVE) 08/05/17 15:41 Urine Glucose (UA) NEGATIVE mg/dL (NEGATIVE) 08/05/17 15:41 Urine Ketones NEGATIVE mg/dL (NEGATIVE) 08/05/17 15:41 Urine Blood MODERATE (NEGATIVE) H 08/05/17 15:41 Urine Nitrate NEGATIVE (NEGATIVE) 08/05/17 15:41 Urine Bilirubin NEGATIVE (NEGATIVE) 08/05/17 15:41 Urine Urobilinogen 0.2 E.U./dL (0.2 - 1.0) 08/05/17 15:41 Ur Leukocyte Esterase SMALL (NEGATIVE) H 08/05/17 15:41 Urine RBC 50-100 /hpf (0-5) H 08/05/17 15:41 Urine WBC 25-50 /hpf (0-5) H 08/05/17 15:41 Ur Epithelial Cells FEW /lpf (FEW) 08/05/17 15:41 Urine Bacteria MODERATE /hpf (NONE SEEN) H 08/05/17 15:41 - Physical Exam Vitals and I&O: Vital Signs Temp 97.4 F 08/09/17 11:45 Pulse 71 08/09/17 14:45 Resp 20 08/09/17 14:45 BP 97/42 08/09/17 11:45 Pulse Ox 96 08/09/17 14:45 Intake & Output 08/08/17 08/09/17 08/09/17 18:59 06:59 18:59 Intake Total 50 900 Balance 50 900 Weight (lbs) 140 lb 7 oz Intake: Intake, IV Amount 50 100 Cefepime 1 gm In Dextrose 50 5% 50 ml @ 100 mls/hr IV Q12HR [facility] Rx#:[id number] Tube Feeding 600 Other 200 Other: # Voids 2 # Bowel Movements 0 Stool Characteristics Soft Soft Brown Brown Active Medications: Current Medications Acetaminophen (Tylenol 650mg/20.3ml Suspension) 650 mg GT Q4H PRN PRN Reason: Pain or Fever >101 Stop: 10/04/17 20:55 Albuterol Sulfate (Albuterol 2.5mg/3ml Neb Ud) 2.5 mg HHN QIDRT [facility] Stop: 10/04/17 18:59 Last Admin: 08/09/17 14:40 Dose: 2.5 mg Albuterol/Ipratropium (Duoneb Neb) 3 ml HHN Q6HR PRN PRN Reason: sob Stop: 10/04/17 18:55 Aspirin (Aspirin Chewable) 81 mg GT DAILY [facility] Stop: 10/05/17 08:59 Last Admin: 08/09/17 09:42 Dose: 81 mg Atorvastatin Calcium (Lipitor) 10 mg GT DAILY [facility] PRN Reason: Protocol Stop: 10/05/17 08:59 Last Admin: 08/09/17 09:42 Dose: 10 mg Bisacodyl (Dulcolax 10 Mg Supp) 10 mg RC DAILY PRN PRN Reason: Constipation Stop: 10/04/17 18:55 Budesonide (Pulmicort) 0.5 mg HHN BIDRT [facility] Stop: 10/05/17 06:59 Last Admin: 08/09/17 07:21 Dose: 0.5 mg Calcium Carbonate (Tums) 1,250 mg GT BID [facility] Stop: 10/05/17 08:59 Last Admin: 08/09/17 09:42 Dose: 1,250 mg Docusate Sodium (Colace) 100 mg GT BID [facility] Stop: 10/05/17 08:59 Last Admin: 08/09/17 09:44 Dose: 100 mg Famotidine (Pepcid) 20 mg GT DAILY [facility] Stop: 10/05/17 08:59 Last Admin: 08/09/17 09:46 Dose: 20 mg Fluconazole (Diflucan) 100 mg PO DAILY [facility] Stop: 08/14/17 08:59 Last Admin: 08/09/17 09:46 Dose: 100 mg Folic Acid (Folate) 1 mg GT DAILY [facility] Stop: 10/05/17 08:59 Last Admin: 08/09/17 09:46 Dose: 1 mg Ipratropium [place] (Atrovent Neb 0.5mg/2.5ml) 0.5 mg IH QIDRT [facility] Stop: 10/04/17 18:59 Last Admin: 08/09/17 14:39 Dose: 0.5 mg Lactobacillus Rhamnosus (Culturelle 15b) 1 each PO DAILY [facility] Stop: 10/06/17 08:59 Last Admin: 08/09/17 09:47 Dose: 1 each Levetiracetam (Keppra) 1,000 mg GT BID [facility] Stop: 10/05/17 08:59 Last Admin: 08/09/17 09:47 Dose: 1,000 mg Levothyroxine Sodium 0.1 mg/ (Levothyroxine Sodium 0.025 mg) 0.125 mg GT QDAC [facility] Stop: 10/07/17 10:59 Last Admin: 08/09/17 07:12 Dose: 0.125 mg Lorazepam (Ativan) 1 mg IV Q4H PRN; Protocol PRN Reason: Seizure Stop: 10/04/17 18:57 Magnesium Hydroxide (Milk Of Magnesia) 30 ml GT DAILY PRN PRN Reason: Constipation Stop: 10/04/17 18:55 Miscellaneous (Probiotic Screen) 1 ea MC PRN PRN PRN Reason: PROTOCOL Stop: 10/05/17 16:29 Polyethylene Glycol (Miralax) 17 gm GT PRN PRN PRN Reason: Constipation Stop: 10/04/17 21:14 Promethazine HCl/Dextromethorphan (Phenergan Dm 6.25/15mg-5 Ml) 5 ml GT Q4H PRN PRN Reason: Cough Stop: 10/04/17 18:55 Valproate Sodium (Depakene) 500 mg GT BID [facility] PRN Reason: Protocol Stop: 10/05/17 08:59 Last Admin: 08/09/17 09:47 Dose: 500 mg Vitamin D (Vitamin D) 400 iu GT BID [facility] Stop: 10/05/17 08:59 Last Admin: 08/09/17 09:47 Dose: 400 iu General: weak, alert HEENT: NC/AT, PERRLA Neck: Supple Lungs: ronchi Cardiovascular: RRR, Normal S1, Normal S2, without murmur Abdomen: soft, non-tender, non-distended, positive bowel sound Extremities: excoriation Neurological: alert - Procedures Procedures: Procedures Procedure Code Date CHANGE FEEDING DEVICE IN UP INTEST TRACT, 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 [id number] 05/11/17 CHANGE GASTROSTOMY TUBE 61524 05/11/17 Internal Medicine Assmt/Plan - Assessment Assessment: possible pna acute uti anemia mr seizure cerebral palsy hyponatremia moderate protein calorie malnutrition hypothyroidism hypercholesteremia - Plan Plan: f/u cxr in am continue ivabx supplemental oxygen follow up labs in am inhalation treatments seizure precautions continue current plan of care Nutritional Asmnt/Malnutr-PDOC - Dietary Evaluation Malnutrition Findings (Please click <Entered> for more info): Nutritional Asmnt/Malnutrition Start: 08/06/17 15: 32 Text: Status: Complete Freq: Document 08/06/17 15:32 LCNONA (Rec: 08/06/17 15:40 [facility] Nutritional Asmnt/Malnutrition Patient General Information Nutritional Screening High Risk Consult Diagnosis PNA, UTI, Sepsis Pertinent Medical Hx/Surgical Hx Asthma/COPD, dyslipidemia, seizure, thyroid, dementia, depression Subjective Information Consult received for saritha Denis . Pt seen resting in bed at time of visit. Verified TF running at 55ml/hr at time of visit. Spoke with RN, pt was tolerating TF well so far. Current Diet Order/ Nutrition Support Isosource 1.5, 55ml/hr x 24hr, providing 1980kcal and 89g protein Pertinent Medications tums, D5-0.9ns, colace, folate , synthroid, vitamin D Pertinent Labs 08/05 na 134, K 4.8, Cl 99, BUN 19, Cr 0.6, Glucose 80, Ca 8. 8, ALb 3.3 Nutritional Hx/Data Height 5 ft Height (Calculated Centimeters) 152.4 Current Weight (lbs) 136 lb Weight (Calculated Kilograms) 61.7 Weight (Calculated Grams) 76100.6 [place] Body Weight 100 % [place] Body Weight 136 Body Mass Index (BMI) 26.5 Weight Status Overweight GI Symptoms GI Symptoms None Last BM no record Difficult in: None Skin Integrity/Comment: intact Estimated Nutritional Goals BEE in Kcals: Using Current wt Calories/Kcals/Kg 25-30 considering sepsis and bedbound Kcals Calculated 6260-6165 Protein: Using Current wt Protein g/k.1-1.3 Protein Calculated 68-80 Fluid: ml 1550-1860ml (1ml/kcal) Nutritional Problem 1. Problem Problem excessive intake from enertal feeding Etiology current TF regimen providding excessive energy Signs/Symptoms: TF meeting about 106% of higher end of calorie needs and 111% of higher end of protein needs. Malnutrition Alert Protein-Calorie Malnutrition N/A Is there a minimum of two criteria No selected? Query Text:Check all the applicable criteria. A minimum of two criteria are recommended for diagnosis of either severe or non-severe malnutrition. Intervention/Recommendation Comments 1. Recommend Isosource 1.5 55ml/hr x 20hr. This will provide 1650kcal, 74g protein and 886ml free water, meeting 100% of nutritional needs. RN rajan notified. 2. Monitor TF rate, tolerance, wt weekly, skin integrity and labs 3. F/U as moderate risk in 3-5 days, 2/3-2/5 Expected Outcomes/Goals Expected Outcomes/Goals 1. Pt to meet 100% of nutritional needs via nutrition support with tolerance 2. Wt stability, skin to remain intact, labs to approach WNL.
--- NOTE | 2017-09-25 18:52 | Discharge Summary ---
DATE OF DISCHARGE: 08/10/2017 DISCHARGE DIAGNOSES: Possible pneumonia, acute UTI, anemia, MR, cerebral palsy, hyponatremia, moderate protein calorie malnutrition, seizure, hypothyroidism, hypercholesterolemia, bedbound. HISTORY OF PRESENT ILLNESS: This is a 56-year-old female with a history of MR, cerebral palsy, but with the seizure, hypothyroidism, hypercholesterolemia admitted from nursing facility secondary to congestion, abdominal chest x-ray. The patient did not improve with outpatient therapy. The patient is nonverbal, noninteractive. PHYSICAL EXAMINATION: GENERAL: Elderly female, awake, nonverbal, no apparent distress. VITAL SIGNS: Stable. HEENT: Normocephalic, atraumatic. NECK: Supple. No mass. LUNGS: Clear bilaterally. HEART: Regular rate and rhythm. ABDOMEN: Soft, nontender. HOSPITAL COURSE: During the hospital stay, the patient was admitted to the telemetry unit. The patient was kept on supplemental oxygen possibility treatments. The patient was also on empiric IV antibiotics. The patient's urine was sent off for cultures as well and it showed no growth. The patient also was for MRSA of the nares showed no growth. The patient's WBCs are within normal limits. For that reason, the patient was stable for discharge. Due to patient's need for IV antibiotic it was then decided the patient to be transferred to [facility]. CONDITION UPON DISCHARGE: Fair. DISPOSITION: [facility]. JOB# [id number]
== END 2017-08-09 21:10 | DRG 871 ==
LOC: ER 14:25 → MSI 20:25
PROVIDERS: ADMIT Internal Medicine; ATTEND Internal Medicine
DX: A41.9 Sepsis, unspecified organism (principal); J18.9 Pneumonia, unspecified organism; E44.0 Moderate protein-calorie malnutrition; R53.2 Functional quadriplegia; F03.90 Unspecified dementia, unspecified severity, without behavioral disturbance, psychotic disturbance, mood disturbance, and anxiety; R56.9 Unspecified convulsions; N39.0 Urinary tract infection, site not specified; E87.1 Hypo-osmolality and hyponatremia; G80.9 Cerebral palsy, unspecified; Z93.1 Gastrostomy status; D64.9 Anemia, unspecified; F79 Unspecified intellectual disabilities; E03.9 Hypothyroidism, unspecified; E78.00 Pure hypercholesterolemia, unspecified; E78.5 Hyperlipidemia, unspecified; F32.9 Major depressive disorder, single episode, unspecified; J44.9 Chronic obstructive pulmonary disease, unspecified; Z83.3 Family history of diabetes mellitus; Z82.49 Family history of ischemic heart disease and other diseases of the circulatory system; Z68.27 Body mass index [BMI] 27.0-27.9, adult; Z74.01 Bed confinement status
CPT/HCPCS: 36415-UA; 71045-TC; 80048-TC; 80053-TC; 81001-TC; 82140-TC; 82550-TC; 83605; 83735-TC; 83880-TC; 84484-TC; 85025-TC; 85610-TC; 85730-TC; 87086-90; 90779; 93005; 94760; J0692; J1450; J3370; J7040; J7042; J7613; Z7610